=== PATIENT | male | born 2000 | race Caucasian/White ===

== ENCOUNTER 2022-02-14 22:59 | Emergency (ER) | payer MEDICAID, SELFPAY ==
[2022-02-14 23:00] VITALS: BP 134/68; PULSE 85; RESP 16; TEMP 37.1; O2SAT 100; BMI 25.8
--- NOTE | 2022-02-14 23:37 | CT_ITS ---
EXAM: CT HEAD WITHOUT INTRAVENOUS CONTRAST CLINICAL INDICATION: head injury TECHNIQUE: Multiple axial images were obtained of the head without intravenous contrast. This CT exam was performed using one or more of the following dose reduction techniques: automated exposure control, adjustment of the mA and/or kV according to patient size, and/or use of iterative reconstruction technique. This report was created using [employer] report generation technology. COMPARISON: None. FINDINGS: BRAIN AND EXTRA-AXIAL SPACES: Unremarkable. No intra- or extra-axial hemorrhage. No evidence of acute infarct. No intracranial mass or mass effect. There is preservation of the nuñez/white matter interface. Posterior fossa structures are unremarkable. Ventricles are appropriate for age. No hydrocephalus. Basal cisterns are patent. BONES/JOINTS: Unremarkable. No discrete lytic or blastic abnormalities. SINUSES: Unremarkable as visualized. Clear. MASTOID AIR CELLS: Unremarkable. Clear. ORBITS: Visualized globes, extraocular muscles, optic nerves and retrobulbar fat appear unremarkable. CT/Brain/Head without Contrast IMPRESSION: Negative head/brain CT without intravenous contrast. Electronically Signed: Efrain Cavanaugh MD at 0:02 EDT ,
--- NOTE | 2022-02-15 01:02 | EX.ED.DYSGE1 ---
HPI History of Present Illness Chief Complaint: Cold Sx Narrative Narrative: Patient is a 21-year-old male who reports a past medical history of migraines. He states on Saturday he tried to jump across an opening and struck his face into a metal pole. He denies any loss of consciousness or history of bleeding disorder or blood thinner use. He states that he noticed that after this he was having some intermittent clear discharge from his nose. He states he is concerned that he may have developed a skull fracture as he did some research online and secondary to this comes in for evaluation. PFSH PFSH Allergy/AdvReac Type Severity Reaction Status Date / Time No Known Allergies Allergy Verified 02/14/22 23:03 Social History Smoking Status: Never smoker ROS ROS ED Constitutional Constitutional ED: Denies chills or fever(s) Eyes Eyes: Denies change in vision ENT ENT ED: Reports rhinorrhea; Denies sore throat Cardiovascular Cardiovascular: Denies chest pain Respiratory/Chest Respiratory/Chest: Denies cough or dyspnea Gastrointestinal Gastrointestinal: Denies abdominal pain, diarrhea, nausea or vomiting Genitourinary Genitourinary ED: Denies dysuria Musculoskeletal Musculoskeletal: Denies myalgias or neck pain Integumentary Denies rash Neurologic Neurologic: Denies headache(s) Hematologic/Lymphatic Hematologic/Lymphatic: Denies easy bleeding or easy bruising EXAM Physical Exam Const Vital Signs: 02/14/22 23:00 02/15/22 01:25 Temperature 98.7 F 97.9 F Temperature Source Temporal Pulse Rate 85 69 Respiratory Rate 16 16 Blood Pressure 134/68 H 126/69 H Blood Pressure Mean 90 Pulse Ox 100 99 Oxygen Delivery Method Room Air Positive well nourished and well developed General Appearance ED: well developed HEENT Reports moist mucous membranes HEENT Narrative: No signs of depressed or basilar skull fracture. There is mild soft tissue swelling with slight ecchymosis across the bridge of the nose. No septal hematoma noted Eyes PERRL and EOMs intact bilaterally Neck supple Neck Narrative: No bony deformity or step-off of the cervical spine no midline pain with palpation Resp normal respiratory effort and clear to auscultation bilaterally Cardio regular rate and regular rhythm GI non-tender and non-distended Auscultation: normoactive bowel sounds Palpation: soft Extremity normal to inspection Neuro oriented x3 and CN's II-XII intact bilaterally Sensorium / Orientation: alert Psych mental status grossly normal Skin no rashes or lesions noted MDM MDM MDM Narrative Medical decision making narrative: Patient presented to the ER in no acute distress with normal neurologic exam and no signs of depressed or basilar skull fracture. As he reported striking his head/face and had concern about CSF rhinorrhea I did elect to perform a noncontrast head CT. This revealed no acute findings which correlates with his physical exam. Therefore at this time with imaging study showing no signs of acute trauma and a normal neurologic exam patient is otherwise safe for discharge Radiography Diagnostic Testing: Clinical Impression(s) from Imaging Studies Brain CT 02/14/22 23:37 IMPRESSION: Negative head/brain CT without intravenous contrast. Electronically Signed: Efrain Cavanaugh MD at 0:02 EDT , Discharge Plan Triage Chief Complaint: Cold Sx ED Provider: Reji Cannon Dx/Rx/DC Orders Clinical Impression: Closed head injury Instructions: ED Head Injury (Adult) Stand Alone Forms: ED Work / School Excuse Primary Care Provider: Care Physician,No Primary Referrals: Magi Walker MD [Med Staff - Epic Application Coordinator] - 3-5 Days if not improving Care Physician,No Primary [Primary Care Provider] - Disposition Disposition: Home, Self Care Discharge Date/Time: 02/15/22 01:26
[2022-02-15 01:25] VITALS: BP 126/69; PULSE 69; RESP 16; TEMP 36.6; O2SAT 99
== END 2022-02-15 01:26 | disposition home or self-care (01) ==
PROVIDERS: Emergency Provider Emergency Medicine; Visit Provider Emergency Medicine
DX: S09.90XA Unspecified injury of head, initial encounter (principal); W22.09XA Striking against other stationary object, initial encounter; Y93.39 Activity, other involving climbing, rappelling and jumping off
CPT/HCPCS: 70450; 99282

== ENCOUNTER 2022-10-13 15:03 | Emergency (ER) | payer MEDICAID, SELFPAY ==
[2022-10-13 15:04] VITALS: BP 124/79; PULSE 92; RESP 18; TEMP 36.2; O2SAT 97; BMI 22.9
--- NOTE | 2022-10-13 15:29 | EDS_ITS ---
HPI <SANDRINE Alcazar - Last Filed: 10/13/22 17:04> History of Present Illness Chief Complaint: Abscess Narrative Narrative: Patient presenting today with concerns that he has an abscess on his tailbone. He states that he has a history of a pilonidal cyst that is chronic and tried to pop it a few days ago and noticed a lot of clear fluid coming out along with blood. He states that that today the cyst returned. He denies any pus-like discharge coming from the area. He states that it is not causing him any pain at this time. He denies having any chronic health conditions, fever, and chills. PFSH <SANDRINE Alcazar - Last Filed: 10/13/22 17:04> [facility] Medical History ADHD Home Medications NK 10/13/22 [History Last Taken Unknown] Allergy/AdvReac Type Severity Reaction Status Date / Time No Known Allergies Allergy Verified 02/14/22 23:03 Social History Smoking Status: Never smoker ROS <SANDRINE Alcazar - Last Filed: 10/13/22 17:04> ROS ED Constitutional Constitutional ED: Denies chills, fever(s) or sweats Eyes Eyes: Denies blurry vision or diplopia Cardiovascular Cardiovascular: Denies chest pain or palpitations Respiratory/Chest Respiratory/Chest: Denies cough, dyspnea, tachypnea or wheezing Gastrointestinal Gastrointestinal: Denies abdominal pain, constipation, diarrhea, nausea or vomiting Genitourinary Genitourinary ED: Denies dysuria, hematuria or urinary urgency Musculoskeletal Musculoskeletal: Denies arthralgias, back pain, myalgias or neck pain Integumentary Denies Abrasions or rash Neurologic Neurologic: Denies confusion, dizziness or paresthesias Psychiatric Psychiatric: Denies anxiety, depression, suicidal ideation or suicidal thoughts Allergic/Immunologic Allergic/Immunologic ED: Denies lip swelling, mouth swelling or urticaria EXAM <SANDRINE Alcazar - Last Filed: 10/13/22 17:04> Physical Exam Const Vital Signs: 10/13/22 15:04 Temperature 97.2 F L Temperature Source Temporal Pulse Rate 92 Respiratory Rate 18 Blood Pressure 124/79 H Blood Pressure Mean 94 Pulse Ox 97 Oxygen Delivery Method Room Air Positive well nourished, well developed and no apparent distress General Appearance ED: well developed HEENT Reports normocephalic and head/scalp atraumatic Mouth ED: Yes moist mucous membranes normal Eyes PERRL and EOMs intact bilaterally Neck full ROM and supple Chest Wall inspection of chest normal Resp normal respiratory effort and clear to auscultation bilaterally Cardio regular rate and regular rhythm GI soft to palpation, non-tender, non-distended and no masses Back/Spine normal ROM and normal to inspection Extremity normal to inspection and full ROM Neuro oriented x3, CN's II-XII intact bilaterally, moves all extremities, no focal motor deficits and no sensory deficits noted Sensorium / Orientation: awake and alert Psych mental status grossly normal and thought process normal Skin Skin Narrative: Pilonidal cyst without cellulitis or abscess. No discharge from the area. No pain to palpation. <Dr. Yehuda Smith MD - Last Filed: 10/13/22 16:05> Physical Exam Const Vital Signs: 10/13/22 15:04 Temperature 97.2 F L Temperature Source Temporal Pulse Rate 92 Respiratory Rate 18 Blood Pressure 124/79 H Blood Pressure Mean 94 Pulse Ox 97 Oxygen Delivery Method Room Air MDM <SANDRINE Alcazar - Last Filed: 10/13/22 17:04> [facility] Narrative Medical decision making narrative: Patient presenting today with a pilonidal cyst that he has had chronically. He states he tried to drain it a few days ago and got clear like fluid along with blood. He is concerned that he has an abscess now. The area is nontender, fluctuant, and without any surrounding erythema. The area I&D, patient refused packing, there is no indication to place patient on antibiotics as there was no purulent material drained from the cyst. Patient was given a follow-up referral with general surgery and discharged home in stable condition. He is comfortable with plan. I have personally performed a face to face assessment of the patient and have reviewed the LULU Note. I performed a substantive portion of the visit including all aspects of the following. My castro findings include: History is [22-year-old male history of a pilonidal cyst or abscess. Recently recurred. Ruptured it is now swollen and painful again. No fever or chills. He is not diabetic. 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 No distress. Her HEENT exam exam normal. Lungs are clear. Heart regular rate and rhythm rate about 90 no murmur. Abdomen soft nontender. Moving all 4 extremities. Neurovascularly intact. Nontender no edema. Back over his sacrum just above his anal crease there is about a 1 cm pilonidal cyst or abscess. No surrounding erythema. Fluctuant. Mildly tender. Back area of the local anesthetized with let and lidocaine Antox was incised and drained. CBC normal] Medical Decision Making [after incision and drainage if there is possibly put on antibiotics if it is clear to drain.] Other additions or changes: [None] <Dr. Yehuda Smith MD - Last Filed: 10/13/22 16:05> [facility] MDM Narrative Medical decision making narrative: Patient presenting today with a pilonidal cyst that he has had chronically. He states he tried to drain it a few days ago and got clear like fluid along with blood. He is concerned that he has an abscess now. I have personally performed a face to face assessment of the patient and have reviewed the LULU Note. I performed a substantive portion of the visit including all aspects of the following. My castro findings include: History is [22-year-old male history of a pilonidal cyst or abscess. Recently recurred. Ruptured it is now swollen and painful again. No fever or chills. He is not diabetic. 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 No distress. Her HEENT exam exam normal. Lungs are clear. Heart regular rate and rhythm rate about 90 no murmur. Abdomen soft nontender. Moving all 4 extremities. Neurovascularly intact. Nontender no edema. Back over his sacrum just above his anal crease there is about a 1 cm pilonidal cyst or abscess. No surrounding erythema. Fluctuant. Mildly tender. Back area of the local anesthetized with let and lidocaine Antox was incised and drained. CBC normal] Medical Decision Making [after incision and drainage if there is possibly put on antibiotics if it is clear to drain.] Other additions or changes: [None] Procedures <SANDRINE Alcazar - Last Filed: 10/13/22 17:04> Other Procedures Procedure(s): Pilonidal cyst I&D: Area was cleaned with chlorhexidine and anesthetized with 3 cc lidocaine. 1 inch incision with a 15 blade was made and clear fluid was expelled from the area. Area was covered in a clean bandage. Patient refused packing. Discharge Plan Triage Chief Complaint: Abscess ED Midlevel Provider: Gisele Grady ED Provider: Yehuda Smith Dx/Rx/DC Orders Clinical Impression: Pilonidal cyst Prescriptions: No Action NK Primary Care Provider: Care Physician,No Primary Referrals: Soledad Garcia MD [Med Staff - Active Staff] - 3-5 Days Care Physician,No Primary [Primary Care Provider] - Activity Restrictions/Additional Instructions: Follow-up with general surgeon I have referred you to. Disposition Disposition: Home, Self Care
[2022-10-13] MEDS: Lidocaine/Epi/Tetracaine 50 ML 1 APPLIC TOPICAL (16:08)
== END 2022-10-13 17:04 | disposition home or self-care (01) ==
PROVIDERS: Emergency Provider Emergency Medicine; Visit Provider Emergency Medicine
DX: L05.91 Pilonidal cyst without abscess (principal)
CPT/HCPCS: 10080; 99283